=== PATIENT | female | born 1965 | race Caucasian/White ===

== ENCOUNTER → 2016-10-21 | Outpatient (CLI) | payer OTHER ==
--- NOTE | 2016-10-21 16:37 | REP ---
Pelvic ultrasound: Study is performed with transabdominal and endovaginal ultrasound imaging. The bladder is incompletely distended. The uterus is anteverted and upper normal size measuring 9.5 x 4.6 x 5.2 cm. The endometrium is thickened for a postmenopausal female measuring 9.2 mm. The right ovary was not visualized. The left ovary is normal to small size measuring 1.8 x 1.0 x 1.6 cm. There is no left ovarian mass or cyst. No free fluid in the pelvis. The myometrium has a diffusely heterogeneous appearance although no focal fibroids are identified. Impression: Diffusely heterogeneous myometrium. No focal fibroids are identified. The endometrium is thickened for a postmenopausal female measuring up to 9.2 mm. Left ovary is unremarkable. Right ovary is not visualized.
== END ==
LOC: M WHC 09:56
PROVIDERS: ATTEND Nurse Practitioner Family
DX: N95.0 Postmenopausal bleeding (principal)

== ENCOUNTER → 2016-11-11 | Outpatient (REF) | payer OTHER | LOC: M SFHCWAGY 12:07 | PROVIDERS: ATTEND Nurse Practitioner Family | DX: N95.0 Postmenopausal bleeding (principal); R93.8 Abnormal findings on diagnostic imaging of other specified body structures ==

== ENCOUNTER → 2017-08-19 | Outpatient (CLI) | payer OTHER ==
--- NOTE | 2017-08-19 16:38 | REPMRS ---
Patient History The patient states she had a clinical breast exam in 08/2017. Patient is postmenopausal. Family history of prostate cancer in maternal grandfather at age 70, pancreatic cancer in mother at age 66, and colorectal cancer in paternal cousin at age 53. Taking unspecified hormones for 1 year. Digital Woman Screen Mammo: August 19, 2017 - Exam #: [id number] Bilateral CC and MLO view(s) were taken. Technologist: Geneva Chau, Technologist Prior study comparison: August 18, 2016, digital woman screen mammo performed at [facility]. August 15, 2015, digital woman screen mammo performed at [facility]. FINDINGS: The breast tissue is heterogeneously dense. This may lower the sensitivity of mammography. There has been no change in the appearance of the mammogram from the prior studies. There is a moderate amount of residual fibroglandular tissue which is fairly symmetric. There is no interval development of dominant mass, architectural distortion, or clustered microcalcification typical of malignancy. Large coarse benign appearing calcifications are present. Scattered lymph nodes are seen in the left axilla. No significant changes when compared with prior studies. ASSESSMENT: BI-RADS/ACR category 2 mammogram. Benign finding(s). Recommendation Routine screening mammogram in 1 year. A. Negative x-ray reports should not delay biopsy if a dominant or clinically suspicious mass is present. B. Four to eight percent of cancers are not identified by mammography. C. Adenosis and dense breast may obscure an underlying neoplasm.(for women over age 40). This mammogram was interpreted with the aid of an FDA-approved computer-aided dectection system. Electronically Signed By: Usman Scott MD 08/19/17 [id number]
== END ==
LOC: M WHC 14:03
PROVIDERS: ATTEND Nurse Practitioner Family
DX: Z12.31 Encounter for screening mammogram for malignant neoplasm of breast (principal); Z78.0 Asymptomatic menopausal state; R92.8 Other abnormal and inconclusive findings on diagnostic imaging of breast; Z79.890 Hormone replacement therapy
CPT/HCPCS: G0202; G0463

== ENCOUNTER → 2018-07-23 | Outpatient (REF) | payer OTHER | LOC: M SFHCCLAY 13:50 | DX: M79.675 Pain in left toe(s) (principal) | CPT/HCPCS: 87255 ==

== ENCOUNTER → 2019-01-17 | Outpatient (REF) | payer OTHER | LOC: M SFHCWAGY 10:30 | PROVIDERS: ATTEND Nurse Practitioner Family | DX: Z12.4 Encounter for screening for malignant neoplasm of cervix (principal) ==

== ENCOUNTER → 2019-01-17 | Outpatient (CLI) | payer OTHER ==
--- NOTE | 2019-01-17 12:55 | REPMRS ---
Patient History The patient states she had a clinical breast exam in 01/2019. Patient is postmenopausal. Family history of prostate cancer at age 70 in maternal grandfather, pancreatic cancer at age 66 in mother, colorectal cancer at age 53 in paternal cousin. Taking unspecified hormones for 2 years 5 months. Digital Woman Screen Mammo: January 17, 2019 - Exam #: [id number] Bilateral CC and MLO view(s) were taken. Technologist: Geneva Chau, Technologist Prior study comparison: August 19, 2017, digital woman screen mammo performed at [facility]. August 18, 2016, digital woman screen mammo performed at [facility]. FINDINGS: The breast tissue is heterogeneously dense. This may lower the sensitivity of mammography. There has been no change in the appearance of the mammogram from the prior studies. There is a moderate amount of residual fibroglandular tissue which is fairly symmetric. There is no interval development of dominant mass, areas of architectural distortion, or clustered microcalcification typical of malignancy. Assessment: BI-RADS/ACR category 1 mammogram. Negative Mammogram. Recommendation Routine screening mammogram in 1 year (for women over age 40). This mammogram was interpreted with the aid of an FDA-approved computer-aided dectection system. Electronically Signed By: Pablo Iniguez MD 01/17/19 [id number]
== END ==
LOC: M WHC 09:52
PROVIDERS: ATTEND Nurse Practitioner Family
DX: Z12.31 Encounter for screening mammogram for malignant neoplasm of breast (principal); Z78.0 Asymptomatic menopausal state; Z80.0 Family history of malignant neoplasm of digestive organs; Z79.890 Hormone replacement therapy
CPT/HCPCS: 77067; G0123; G0463

== ENCOUNTER → 2020-07-17 | Outpatient (CLI) | payer OTHER ==
--- NOTE | 2020-07-17 10:46 | REP ---
INDICATION: NILSON SCR MAMMO. COMPARISON: 01/17/2019 as well as other prior exams. TECHNIQUE: Digital screening (2D) mammography was performed bilaterally. Additionally, breast tomosynthesis (3D mammography) was performed bilaterally in the CC and MLO projections and compared to the prior exam(s). FINDINGS: There is moderate fibroglandular tissue again seen bilaterally. There is new smoothly marginated nodule in the medial right breast approximately 2 cm in diameter. No other nodule is seen bilaterally. There is no architectural distortion. There are no clustered microcalcifications. There are coarse benign type calcifications bilaterally. Volpara breast density B. [facility] lifetime risk of breast cancer 7.9%. Patient states her last clinical breast exam is July 2020. IMPRESSION: BI-RADS category 0 incomplete mammogram. New smoothly marginated 2 cm nodule medially in the right breast, mid 3rd. Recommend spot compression views and ultrasound to further evaluate. This mammogram was read with the assistance of [employer], an FDA approved computer aided detection system for mammography. Negative x-ray reports should not delay surgical consultation if a dominant or clinically suspicious mass is present. Not all breast cancers can be identified by mammography. Therefore, we recommend that you continue to perform regular breast self-examination and physical examination and then promptly contact your physician of any concerns or changes. Adenosis and dense breasts may obscure an underlying neoplasm. Request patient letter M0. <Electronically signed by Pablo Iniguez > 07/17/20 [id number]
== END ==
LOC: M WHC 09:16
PROVIDERS: ATTEND Nurse Practitioner Family
DX: Z12.31 Encounter for screening mammogram for malignant neoplasm of breast (principal); N63.10 Unspecified lump in the right breast, unspecified quadrant; R92.1 Mammographic calcification found on diagnostic imaging of breast
CPT/HCPCS: 77063; 77067; G0463

== ENCOUNTER → 2022-04-10 | Outpatient (CLI) | payer OTHER | LOC: M RAD 07:32 | PROVIDERS: ATTEND Physician Assistant | DX: M51.37 Other intervertebral disc degeneration, lumbosacral region (principal) ==

== ENCOUNTER → 2023-03-20 | Outpatient (CLI) | payer OTHER | LOC: M WHC 14:59 | PROVIDERS: ATTEND Family Medicine | DX: Z12.31 Encounter for screening mammogram for malignant neoplasm of breast (principal) ==

== ENCOUNTER → 2024-03-22 | Outpatient (CLI) | payer OTHER | LOC: M RAD 15:34 | PROVIDERS: ATTEND Nurse Practitioner Primary Care | DX: Z87.891 Personal history of nicotine dependence (principal) ==

== ENCOUNTER → 2024-07-15 | Outpatient (REF) | payer OTHER | LOC: M LAB REF 13:12 | PROVIDERS: ATTEND Optometrist | DX: D23.122 Other benign neoplasm of skin of left lower eyelid, including canthus (principal) ==

== ENCOUNTER → 2025-03-23 | Outpatient (CLI) | payer OTHER | LOC: M RAD 14:27 | PROVIDERS: ATTEND Internal Medicine Pulmonary Disease | DX: Z87.891 Personal history of nicotine dependence (principal) ==

== ENCOUNTER → 2025-07-20 | Outpatient (CLI) | payer OTHER | LOC: M WHC 11:05 | PROVIDERS: ATTEND Nurse Practitioner Primary Care | DX: Z12.31 Encounter for screening mammogram for malignant neoplasm of breast (principal); R92.333 Mammographic heterogeneous density, bilateral breasts; R92.8 Other abnormal and inconclusive findings on diagnostic imaging of breast ==

== ENCOUNTER → 2025-08-14 | Outpatient (CLI) | payer OTHER | LOC: M WHC 10:34 | PROVIDERS: ATTEND Nurse Practitioner Primary Care | DX: R92.2 Inconclusive mammogram (principal); R92.0 Mammographic microcalcification found on diagnostic imaging of breast; N63.10 Unspecified lump in the right breast, unspecified quadrant | CPT/HCPCS: 77065; G0279 ==